=== PATIENT | female | born 1970 | race Caucasian/White ===

== ENCOUNTER → 2017-11-17 | Outpatient (CLI) | payer BC | END | disposition home or self-care (01) | LOC: MAMMO 08:12 | DX: R92.8 Other abnormal and inconclusive findings on diagnostic imaging of breast (principal) | CPT/HCPCS: 76641; 77065; G0279 ==

== ENCOUNTER → 2018-10-18 | Outpatient (CLI) | payer BC ==
--- NOTE | 2018-10-18 17:07 | KCIC ---
Five view lumbar spine series: Clinical indications: Chronic Low back pain. Findings: No fracture of the transverse processes is seen.No compression fracture is evident.No spondylolisthesis is seen.No discitis or osteolytic process is seen.No radiolucent pars defect is seen.No significant facet arthropathy is seen.No significant degenerative endplate spurring is present. Impression: No significant osseous abnormality of the lumbar spine is seen. Electronically signed by: Matt Chaparro MD (10/18/2018 5:05 PM) [facility]
--- NOTE | 2018-10-18 17:07 | KCIC ---
Five-view cervical spine series Clinical indications: Chronic neck pain. FINDINGS: No acute fracture or discitis or lytic process or prevertebral soft tissue swelling is evident. There is straightening of the normal cervical lordosis which may be seen with muscle spasm. There is grade 1 anterolisthesis of C2-3 and C3-4. There is mild degenerative endplate spurring and disc space narrowing at C4-5 and C5-6. There is mild degenerative endplate spurring without disc space narrowing at C6-7. No significant neural foraminal narrowing is seen. IMPRESSION: Muscle spasm. Degenerative cervical spondylosis. Electronically signed by: Matt Chaparro MD (10/18/2018 5:04 PM) [facility]
== END | disposition home or self-care (01) ==
LOC: KCIC 10:50
PROVIDERS: ATTEND Chiropractor
DX: M47.812 Spondylosis without myelopathy or radiculopathy, cervical region (principal); M62.838 Other muscle spasm; M43.12 Spondylolisthesis, cervical region; M48.02 Spinal stenosis, cervical region; M46.02 Spinal enthesopathy, cervical region; M54.5 Low back pain; G89.29 Other chronic pain
CPT/HCPCS: 72040; 72050; 72100; 72110

== ENCOUNTER → 2020-04-03 | Outpatient (CLI) | payer BC ==
--- NOTE | 2020-04-03 18:40 | KCIC ---
BILATERAL SCREENING MAMMOGRAM History: Routine screening. Comparison: Bilateral mammogram March 02, 2016. Technique: Routine bilateral digital mammogram views were obtained. Findings: Breast Tissue Density B : There are scattered areas of fibroglandular density. There are 2 benign calcifications in the left breast centrally. There are no dominant masses, suspicious microcalcifications or architectural distortion. IMPRESSION: No mammographic evidence of malignancy. Recommend routine screening. BI-RADS category 2: Benign findings. The images were reviewed with computer aided detection. Patient information is entered into the reminder system with a target due date for the next screening mammogram. Mammography is the most sensitive method for finding small breast cancers, but it does not detect the m all and is not a substitute for careful clinical examination. A negative mammogram does not negate a clinically suspicious finding and should not result in delay in biopsying a clinically suspicious a bnormality. "Our facility is accredited by the [employer] Mammography Program." Electronically signed by: Saurabh Castle MD (04/03/2020 6:38 PM) [email or web address]
== END ==
LOC: KCIC MAMMO 10:25
PROVIDERS: ATTEND Obstetrics & Gynecology
DX: Z12.31 Encounter for screening mammogram for malignant neoplasm of breast (principal)
CPT/HCPCS: 77067